=== PATIENT | male | born 1980 | race Asian ===

== ENCOUNTER 2024-02-21 16:43 | Outpatient (CLI) | payer MEDICAID | END 2024-02-21 23:59 | disposition home or self-care (01) | LOC: LAB 16:43 | PROVIDERS: ATTEND Nurse Practitioner Psychiatric/Mental Health | DX: I45.10 Unspecified right bundle-branch block (principal); I49.3 Ventricular premature depolarization; Z79.899 Other long term (current) drug therapy | CPT/HCPCS: 93005 ==